=== PATIENT | female | born 1945 | race Caucasian/White ===

== ENCOUNTER → 2016-12-20 | Outpatient (CLI) | payer MEDICARE ==
--- NOTE | 2016-12-24 08:15 | MM ---
Reason for exam: screening (asymptomatic). Last mammogram was performed 1 year and 5 months ago. History: Patient is postmenopausal. Family history of breast cancer in maternal cousin. Benign right breast aspiration of the right breast, March 27, 2012. Benign right breast aspiration additional of the right breast, March 27, 2012. Took estrogen for 1 year beginning at age 54. Took progesterone for 1 year. Physical Findings: A clinical breast exam by your physician is recommended on an annual basis and results should be correlated with mammographic findings. MG 3D Screening Mammo W/Cad Bilateral CC and MLO view(s) were taken. Prior study comparison: July 20, 2015, right breast MG work up mamm w CAD RT. July 18, 2015, bilateral MG screening mammo w CAD. The breast tissue is heterogeneously dense. This may lower the sensitivity of mammography. Finding: There are coarse heterogeneous, grouped/clustered calcifications in the upper outer quadrant of the left breast, 6 cm from the nipple. There is a chronic nodularity bilaterally. New finding since July 20, 2015 and July 18, 2015. ASSESSMENT: Incomplete: need additional imaging evaluation, BI-RAD 0 RECOMMENDATION: Special view mammogram of the left breast. [facility] will attempt to contact patient to return for supplemental views.
== END | disposition home or self-care (01) ==
LOC: RADMAMWWP 11:11
PROVIDERS: ATTEND Internal Medicine
DX: Z12.31 Encounter for screening mammogram for malignant neoplasm of breast (principal)
CPT/HCPCS: 77063; G0202

== ENCOUNTER → 2016-12-27 | Outpatient (CLI) | payer MEDICARE ==
--- NOTE | 2016-12-27 11:34 | MM ---
Reason for exam: additional evaluation requested from abnormal screening. Last mammogram was performed less than 1 month ago. History: Patient is postmenopausal. Family history of breast cancer in maternal cousin at age 65. Benign right breast aspiration of the right breast, March 27, 2012. Benign right breast aspiration additional of the right breast, March 27, 2012. Took estrogen for 1 year beginning at age 54. Took progesterone for 1 year. Physical Findings: Nurse did not find any significant physical abnormalities on exam. MG 3D Work Up W/Cad LT LM, CC with magnification, and ML with magnification view(s) were taken of the left breast. Prior study comparison: December 20, 2016, bilateral MG 3d screening mammo w/cad. July 20, 2015, right breast MG work up mamm w CAD RT. The breast tissue is heterogeneously dense. This may lower the sensitivity of mammography. Group of micro calcifications with nodular density upper outer left breast. Biopsy is recommended. These results were verbally communicated with the patient and result sheet given to the patient on 12/27/16. ASSESSMENT: Suspicious, BI-RAD 4 RECOMMENDATION: Stereotactic core biopsy of the left breast. Called Dr. Nichols with mammographic findings and has scheduled an appointment for the patient for 01/07/17 at 1:[address] Guillen. Biopsy scheduled for 12/31/16 at 2:20. PRELIMINARY REPORT CALLED AND FAXED TO DR. GUILLEN ON 12/27/16 AT 300/TP.
== END | disposition home or self-care (01) ==
LOC: RADMAMWWP 08:47
PROVIDERS: ATTEND Internal Medicine
DX: R92.8 Other abnormal and inconclusive findings on diagnostic imaging of breast (principal)
CPT/HCPCS: G0206; G0279

== ENCOUNTER → 2016-12-31 | Day surgery (SDC) | payer MEDICARE ==
[~2016-12-31] MED LIST: ALPRAZolam 0.25 MG TAB ONE; BACITRACIN OINT 1 EACH PACKET TOPICAL ONE; LIDOCAINE 1% INJ 10MG/ML (20 ML MDV) ONE; SODIUM BICARB 4% 5 ML VIAL (0.48 MEQ/ML) ONE
--- NOTE | 2016-12-31 15:53 | MM ---
EXAMINATION TYPE: MG stereo VAD BX LT DATE OF EXAM: 12/31/2016 3:22 PM COMPARISON: Prior left breast mammogram December 27, 2016 and older studies CLINICAL HISTORY: Suspicious abnormal mammogram TECHNIQUE: Stereotactic guided core biopsy of left breast with clip placement and follow-up two-view mammogram. FINDINGS: The procedure of stereotactic guided core biopsy was explained to the patient. Benefits, alternatives, and risks were discussed. An informed consent was then obtained. Pathway chosen was cranial approach as lesion was best seen on CC view. I performed the localization then performed the remainder of the procedure. Lidocaine with bicarbonate is used as anesthetic. A vacuum assisted biopsy gun was used to obtain multiple core samples. The patient tolerated the procedure well without any immediate complication. The patient was kept in the radiology department for short stay after the procedure and then discharged home in stable condition. Some calcifications are identified in specimen mammogram. Post biopsy mammogram shows the clip to appear in satisfactory position relative to the targeted area of concern on the preprocedure images. IMPRESSION: SUCCESSFUL, UNCOMPLICATED STEREOTACTIC GUIDED CORE BIOPSY OF AREA OF CONCERN IN THE LEFT BREAST, FULL PATHOLOGY RESULTS TO FOLLOW. Intermediate index of suspicion noted at time of procedure. Pathology Results: Benign BREAST, LEFT, STEREOTACTIC CORE BIOPSY: FIBROCYSTIC CHANGE (STROMAL FIBROSIS, CYST FORMATION, APOCRINE METAPLASIA, ADENOSIS AND DUCT HYPERPLASIA). 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 PENDING DEEPER SECTIONS AND X-RAY OF BLOCK. ADDENDUM REPORT BREAST, LEFT, STEREOTACTIC CORE BIOPSY: FIBROCYSTIC CHANGE (STROMAL FIBROSIS, CYST FORMATION, APOCRINE METAPLASIA, ADENOSIS AND DUCT HYPERPLASIA). 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 RARE MICROCALCIFICATIONS AND CALCIUM OXYLATE CRYSTALS. Recommendation Follow up mammogram of the left breast in 6 months. MARYD
== END ==
LOC: RADMAMWWP 13:06
PROVIDERS: ATTEND Surgery
DX: N60.12 Diffuse cystic mastopathy of left breast (principal); N60.82 Other benign mammary dysplasias of left breast; N60.22 Fibroadenosis of left breast; N60.92 Unspecified benign mammary dysplasia of left breast; R92.8 Other abnormal and inconclusive findings on diagnostic imaging of breast
CPT/HCPCS: 88305; 19081; A4648; J2001

== ENCOUNTER 2019-02-18 19:51 | Inpatient (IN) | payer MEDICARE ==
--- NOTE | 2019-02-18 20:59 | ED ---
Chest Pain HPI - General Chief Complaint: Chest Pain Stated Complaint: chest & abdominal pain Time Seen by Provider: 02/18/19 20:54 Source: patient, family Mode of arrival: ambulatory Limitations: no limitations - History of Present Illness Initial Comments: This patient is 73-year-old woman who presents to be evaluated for chest pain that develops a few hours ago. She does state however that it has been present intermittently over the past week or so. MD Complaint: chest pain -: hour(s) Onset: during rest Pain Location: substernal Pain Radiation: back Severity: moderate Quality: tightness Consistency: now resolved Improves With: nothing Worsens With: nothing Anginal Symptoms: dyspnea - Related Data On Oral Contraceptives: No Home Medications Medication Instructions Recorded Confirmed Levothyroxine Sodium [Synthroid] 75 mcg PO DAILY 02/18/19 02/18/19 Multivitamins, Thera [Multivitamin 1 tab PO DAILY 02/18/19 02/18/19 (formulary)] Omeprazole 20 mg PO DAILY 02/18/19 02/18/19 Allergies Allergy/AdvReac Type Severity Reaction Status Date / Time Sulfa (Sulfonamide Allergy Unknown Verified 02/18/19 20:07 Antibiotics) Review of Systems ROS Statement: Those systems with pertinent positive or pertinent negative responses have been documented in the HPI. ROS Other: All systems not noted in ROS Statement are negative. Constitutional: Denies: fever, chills Respiratory: Reports: dyspnea. Denies: cough Cardiovascular: Reports: chest pain. Denies: palpitations, orthopnea, edema, syncope Gastrointestinal: Denies: abdominal pain, nausea, vomiting Genitourinary: Denies: dysuria, hematuria Musculoskeletal: Denies: back pain Skin: Denies: rash Neurological: Denies: headache, weakness, numbness EKG Findings - EKG Results: EKG: interpreted by ERMD, sinus rhythm (Rate 70 bpm) - Blocks, [place], Hypertrophy, ST Abn: AV and intraventricular conduction: left bundle branch block (fixed/intermittent, complete/incomplete) Past Medical History Past Medical History: Thyroid Disorder History of Any Multi-Drug Resistant Organisms: None Reported Past Surgical History: Orthopedic Surgery Past Psychological History: No Psychological Hx Reported Smoking Status: Never smoker Past Alcohol Use History: None Reported Past Drug Use History: None Reported - Past Family History Mother Family Medical History: Cancer, CVA/TIA Additional Family Medical History / Comment(s): colon cancer, polio Father Additional Family Medical History / Comment(s): acid reflux, heart issues (not sure what) General Exam Limitations: no limitations General appearance: alert, in no apparent distress Head exam: Present: atraumatic, normocephalic Eye exam: Present: normal appearance. Absent: scleral icterus, conjunctival injection ENT exam: Present: normal oropharynx Respiratory exam: Present: normal lung sounds bilaterally. Absent: respiratory distress, wheezes, rales, rhonchi, stridor Cardiovascular Exam: Present: regular rate, normal rhythm, normal heart sounds. Absent: systolic murmur, diastolic murmur, rubs, gallop GI/Abdominal exam: Present: soft. Absent: distended, tenderness, guarding, rebound, rigid, mass Extremities exam: Present: normal inspection, normal capillary refill. Absent: pedal edema, calf tenderness Back exam: Present: normal inspection. Absent: CVA tenderness (R), CVA tenderness (L) Neurological exam: Present: alert Skin exam: Present: warm, dry, intact, normal color. Absent: rash Course Vital Signs 02/18/19 02/18/19 19:53 23:41 Temperature 98.3 F 98.4 F Pulse Rate 75 68 Respiratory 22 20 Rate Blood Pressure 167/72 166/77 O2 Sat by Pulse 95 96 Oximetry Disposition Clinical Impression: Chest pain, Cholecystitis Disposition: ADMITTED IP TO THIS HOSP Condition: Fair
[2019-02-18 21:07] LABS: Basophils % (A) 0 %; Eosinophils # (A) 0.3 k/uL (0-0.7); Eosinophils % (A) 3 %; HCT 38.6 % (34.0-46.0); HGB 12.9 gm/dL (11.4-16.0); Lymphocytes # (A) 1.8 k/uL (1.0-4.8); Lymphocytes % (A) 18 %; MCH 26.3 pg (25.0-35.0); MCHC 33.4 g/dL (31.0-37.0); MCV 78.7 fL (80.0-100.0); Mean Platelet Volume 7.7; Monocytes # (A) 0.5 k/uL (0-1.0); Monocytes % (A) 5 %; Neutrophils # (A) 7.2 k/uL (1.3-7.7); Neutrophils % (A) 72 %; Platelet Count 290 k/uL (150-450); WBC 9.9 k/uL (3.8-10.6)
[2019-02-18 21:19] LABS: Albumin 4.2 g/dL (3.5-5.0); Calcium 9.3 mg/dL (8.4-10.2); Magnesium 2.1 mg/dL (1.6-2.3); Potassium 4.4 mmol/L (3.5-5.1); Total Bilirubin 0.5 mg/dL (0.2-1.3)
[2019-02-18 21:24] LABS: INR 0.9 (<1.2); Partial Thromboplastin Time 22.7 sec (22.0-30.0); Prothrombin Time 9.6 sec (9.0-12.0)
--- NOTE | 2019-02-18 21:27 | XR ---
EXAMINATION TYPE: XR chest 1V portable DATE OF EXAM: 02/18/2019 COMPARISON: 01/01/2016 HISTORY: Chest pain TECHNIQUE: Single frontal view of the chest is obtained. FINDINGS: There is no heart failure nor confluent pneumonic infiltrate. Costophrenic angles are sonali r. There are chest leads. Bony thorax is intact. IMPRESSION: No active cardiopulmonary disease. No change.
[2019-02-18 21:46] LABS: D-Dimer 0.7 mg/L FEU (<0.60)
--- NOTE | 2019-02-18 23:09 | US ---
EXAM: US Abdomen Limited, Right Upper Quadrant CLINICAL HISTORY: Reason: Pain, attention RUQ TECHNIQUE: Real-time ultrasound of the right upper quadrant with image documentation. COMPARISON: None available FINDINGS: Liver: Hepatic increased echotexture and ultrasound attenuation most suggestive of hepatic fatty infiltration. Gallbladder: Gallbladder is distended and contains a large gallstone measuring 3.5 cm. Borderline gallbladder wall thickening measuring 3.1 mm. [place] [employer] reports positive sonographic Gonsalves sign. Common bile duct: Common bile duct is mildly dilated measuring 8.6 mm. Pancreas: Pancreas not well visualized. Right kidney: Right kidney is of normal size and echotexture. No hydronephrosis. IMPRESSION: Evidence of hepatic fatty infiltration. Distended gallbladder with cholelithiasis containing large 3.5 cm gallstone. Borderline Gallbladder wall thickening and positive sonographic Gonsalves sign raising possibility of cholecystitis. Clinical correlation is recommended. Mild biliary dilatation with common bile duct measuring 8.6 mm. <MYCVCSECTION> [employer] 02/18/19 23:20 Verify Receipt Verified receipt with Dr. Mann on 02/18 23: 19 (-04:00)
[2019-02-18] MEDS ORDERED: HYDROmorphone 1 MG/ML 1 ML SYRINGE IVP PRN (23:21)
[2019-02-18] MEDS ORDERED: ONDANSETRON 4 MG/2 ML VIAL IVP PRN (23:21)
[2019-02-18] MEDS ORDERED: NALOXONE 0.4 MG/ML 1 ML VIAL IV PRN (23:21)
[2019-02-18] MEDS: SODIUM CHLORIDE 0.9% 1,000 ML IV SCH (23:41)
[2019-02-19] MEDS: SODIUM CHLORIDE 0.9% 1,000 ML IV SCH ×2 (07:51→15:07)
--- NOTE | 2019-02-19 08:01 | P.HPIM ---
History of Present Illness Chief complaint Epigastric pain History of present illness The patient is a 73-year-old female presented to the emergency room last night with epigastric discomfort and some radiation up into the chest and right upper quadrant. This was associated with some nausea. No unusual shortness of breath. No cough fever or chills. Past medical history Patient does have history of hypothyroidism Gastroesophageal reflux disease. No history of myocardial infarction, diabetes or stroke. Home medications Levothyroxine 75 g daily Omeprazole 20 mg daily Multiple vitamins daily ALLERGIES: Sulfa Review of systems No unusual headache. No shortness of breath. No cough or phlegm production. Positive nausea. No unusual urinary or bowel symptomatology no blood per rectum. No unusual edema. Family history noncontributory Social history Lives locally with her . No history of smoking or any excessive alcohol intake. Physical examination The patient in bed alert and oriented in no acute distress. Vital signs show temperature 98.4 with a pulse of 79 respirations 18. Blood pressure is 166/78 and she is 97% saturated. Head and neck exam unremarkable except for some right eye strabismus. Neck is not stiff. No carotid bruits. No thyromegaly detected. Breast and pelvic exam deferred. Lungs are clear to auscultation. Heart tones are regular without murmurs. Abdomen reveals tenderness in the epigastrium and right upper quadrant. No masses. Bowel sounds diminished. Images reveal no edema. Neurologically she is alert and oriented. Cranial nerves intact without focal peripheral weakness noted. Laboratory White count is 9.9 with a hemoglobin 12.9 and a platelet count of 290 INR was 0.9 with a PTT of 22.7. D-dimer was 0.7. Electrolytes normal. BUN 21 with creatinine 0.89 given her GFR of 65. Random glucose 172. Troponin less than 0.012. Liver enzymes normal. Albumin 4.2. Chest x-ray No active disease. No changes from previous back in 2016 EKG shows a normal sinus rhythm with a left bundle branch block but no evidence of acute ischemic changes noted. Abdominal ultrasound Showed gallbladder distended containing a large gallstone of 3.5 cm. Thickening noted. Fatty infiltration of the liver noted. Impressions Acute cholecystitis with gallstones. Patient been treated for hypothyroidism. Gastroesophageal reflux. Patient does have some mildly elevated blood pressures and this will be monitored. At this time I do not see any definite contraindication to cholecystectomy. This was discussed with the patient and nursing staff this morning. Plans A surgical consultation. Patient apparently is scheduled for surgery later today. Patient appears to understand testing results and reasons for surgery. Past Medical History Past Medical History: Thyroid Disorder History of Any Multi-Drug Resistant Organisms: None Reported Past Surgical History: Orthopedic Surgery Additional Past Surgical History / Comment(s): right hip replacement 2011 Past Anesthesia/Blood Transfusion Reactions: Previous Problems w/ Anesthesia Additional Past Anesthesia/Blood Transfusion Reaction / Comment(s): vertigo after anesthesia Past Psychological History: No Psychological Hx Reported Smoking Status: Never smoker Past Alcohol Use History: None Reported Past Drug Use History: None Reported - Past Family History Mother Family Medical History: Cancer, CVA/TIA Additional Family Medical History / Comment(s): colon cancer, polio Father Additional Family Medical History / Comment(s): acid reflux, heart issues (not sure what) Medications and Allergies Home Medications Medication Instructions Recorded Confirmed Type Levothyroxine Sodium [Synthroid] 75 mcg PO DAILY 02/18/19 02/18/19 History Multivitamins, Thera [Multivitamin 1 tab PO DAILY 02/18/19 02/18/19 History (formulary)] Omeprazole 20 mg PO DAILY 02/18/19 02/18/19 History Allergies Allergy/AdvReac Type Severity Reaction Status Date / Time Sulfa (Sulfonamide Allergy Unknown Verified 02/18/19 20:07 Antibiotics) Physical Exam Vitals: Vital Signs Temp Pulse Pulse Resp BP BP Pulse Ox 02/19/19 00:05 98.4 F 79 18 166/78 97 02/18/19 23:41 98.4 F 68 20 166/77 96 02/18/19 19:53 98.3 F 75 22 167/72 95 Intake and Output 02/18/19 02/19/19 02/19/19 22:59 06:59 14:59 Intake Total 750 Balance 750 Intake: Intake, IV Titration 750 Amount Sodium Chloride 0.9% 1, 750 000 ml @ 125 mls/hr IV . Q8H RACHAEL Rx#:[id number] Other: Voiding Method Toilet # Voids 2 Weight 97.522 kg Results CBC & Chem 7: 02/18/19 20:20 02/18/19 20:20 Labs: Abnormal Lab Results - Last 24 Hours (Table) 02/18/19 02/18/19 02/18/19 Range/Units 20:20 20:20 20:20 MCV 78.7 L (80.0-100.0) fL D-Dimer 0.70 H (<0.60) mg/L FEU BUN 21 H (7-17) mg/dL Glucose 172 H (74-99) mg/dL Thrombosis Risk Factor Assmnt - Choose All That Apply Any of the Below Risk Factors Present?: Yes Each Factor Represents 1 point: Obesity (BMI >25) Other Risk Factors: Yes Each Risk Factor Represents 2 Points: Age 61-74 years Other congenital or acquired thrombophilia - If yes, enter type in comment: No Thrombosis Risk Factor Assessment Total Risk Factor Score: 3 Thrombosis Risk Factor Assessment Level: Moderate Risk
--- NOTE | 2019-02-19 09:30 | P.GSCN ---
<Kimi Ruiz - Last Filed: 02/19/19 09:23> History of Present Illness Consult date: 02/19/19 Reason for Consult: Cholecystitis Requesting physician: Ziggy Vickers History of present illness: CHIEF COMPLAINT: Abdominal pain HISTORY OF PRESENT ILLNESS: 73-year-old female who presented to the emergency room with a chief complaint of epigastric pain. Patient states her pain initially started yesterday morning and then subsided. She went to lunch and reports having turkey, mashed potatoes, and vegetables and afterwards her pain became severe. Her pain radiated into her right shoulder and back. Reports some mild nausea. Denies emesis. Denies fever. PAST MEDICAL HISTORY: See list. PAST SURGICAL HISTORY: See list. SOCIAL HISTORY: No illicit drug use. REVIEW OF SYSTEMS: CONSTITUTIONAL: Denies fever or chills. HEENT: Denies blurred vision, vision changes, or eye pain. Denies hemoptysis CARDIOVASCULAR: Denies chest pain or pressure. RESPIRATORY: No shortness of breath. GASTROINTESTINAL: Refer to HPI for pertinent findings HEMATOLOGIC: Denies bleeding disorders. GENITOURINARY: Denies any blood in urine. SKIN: Denies pruitis. Denies rash. PHYSICAL EXAM: VITAL SIGNS: Reviewed. GENERAL: Well-developed in no acute distress. HEENT: No sclera icterus. Extraocular movements grossly intact. Moist buccal mucosa. Head is atraumatic, normocephalic. ABDOMEN: Soft. Nondistended. Tenderness upon epigastric region and right upper quadrant. NEUROLOGIC: Alert and oriented. Cranial nerves II through XII grossly intact. LABORATORY DATA: WBC 9.9. Hemoglobin 12.9. Total bilirubin 0.5. AST 26. ALT 42. IMAGING: Abdominal ultrasound: Distended gallbladder, cholelithiasis with large stone measuring 3.5 cm, gallbladder wall thickening, positive sonographic Gonsalves sign, mild biliary duct dilation measuring 8.6 mm. ASSESSMENT: 1. Epigastric/right upper quadrant pain with radiation to shoulder and back 1 day 2. Acute cholecystitis PLAN: 1. Nothing by mouth. Continue IV fluids. 2. Patient to undergo laparoscopic cholecystectomy today by Dr. Moss. 3. DVT prophylaxis with SCDs. Begin heparin subcu postoperatively 4. Protonix 40 mg IV daily 5. Medicine has evaluated the patient this morning and cleared for surgery. Nurse practitioner note has been reviewed by physician. Signing provider agrees with the documented findings, assessment, and plan of care. Past Medical History Past Medical History: Thyroid Disorder History of Any Multi-Drug Resistant Organisms: None Reported Past Surgical History: Orthopedic Surgery Additional Past Surgical History / Comment(s): right hip replacement 2011 Past Anesthesia/Blood Transfusion Reactions: Previous Problems w/ Anesthesia Additional Past Anesthesia/Blood Transfusion Reaction / Comm: vertigo after anesthesia Past Psychological History: No Psychological Hx Reported Smoking Status: Never smoker Past Alcohol Use History: None Reported Past Drug Use History: None Reported - Past Family History Mother Family Medical History: Cancer, CVA/TIA Additional Family Medical History / Comment(s): colon cancer, polio Father Additional Family Medical History / Comment(s): acid reflux, heart issues (not sure what) Medications and Allergies Home Medications Medication Instructions Recorded Confirmed Type Levothyroxine Sodium [Synthroid] 75 mcg PO DAILY 02/18/19 02/18/19 History Multivitamins, Thera [Multivitamin 1 tab PO DAILY 02/18/19 02/18/19 History (formulary)] Omeprazole 20 mg PO DAILY 02/18/19 02/18/19 History Allergies Allergy/AdvReac Type Severity Reaction Status Date / Time Sulfa (Sulfonamide Allergy Unknown Verified 02/18/19 20:07 Antibiotics) Surgical - Exam Vital Signs Temp Pulse Resp BP Pulse Ox 98.3 F 75 22 167/72 95 02/18/19 19:53 02/18/19 19:53 02/18/19 19:53 02/18/19 19:53 02/18/19 19:53 Results - Labs 02/18/19 20:20 02/18/19 20:20 Abnormal Lab Results - Last 24 Hours (Table) 02/18/19 02/18/19 02/18/19 Range/Units 20:20 20:20 20:20 MCV 78.7 L (80.0-100.0) fL D-Dimer 0.70 H (<0.60) mg/L FEU BUN 21 H (7-17) mg/dL Glucose 172 H (74-99) mg/dL Diabetes panel 02/18/19 Range/Units 20:20 Sodium 139 (137-145) mmol/L Potassium 4.4 (3.5-5.1) mmol/L Chloride 105 (98-107) mmol/L Carbon Dioxide 24 (22-30) mmol/L BUN 21 H (7-17) mg/dL Creatinine 0.89 (0.52-1.04) mg/dL Glucose 172 H (74-99) mg/dL Calcium 9.3 (8.4-10.2) mg/dL AST 26 (14-36) U/L ALT 42 (9-52) U/L Alkaline Phosphatase 98 (38-126) U/L Total Protein 7.0 (6.3-8.2) g/dL Albumin 4.2 (3.5-5.0) g/dL Calcium panel 02/18/19 Range/Units 20:20 Calcium 9.3 (8.4-10.2) mg/dL Albumin 4.2 (3.5-5.0) g/dL Pituitary panel 02/18/19 Range/Units 20:20 Sodium 139 (137-145) mmol/L Potassium 4.4 (3.5-5.1) mmol/L Chloride 105 (98-107) mmol/L Carbon Dioxide 24 (22-30) mmol/L BUN 21 H (7-17) mg/dL Creatinine 0.89 (0.52-1.04) mg/dL Glucose 172 H (74-99) mg/dL Calcium 9.3 (8.4-10.2) mg/dL Adrenal panel 02/18/19 Range/Units 20:20 Sodium 139 (137-145) mmol/L Potassium 4.4 (3.5-5.1) mmol/L Chloride 105 (98-107) mmol/L Carbon Dioxide 24 (22-30) mmol/L BUN 21 H (7-17) mg/dL Creatinine 0.89 (0.52-1.04) mg/dL Glucose 172 H (74-99) mg/dL Calcium 9.3 (8.4-10.2) mg/dL Total Bilirubin 0.5 (0.2-1.3) mg/dL AST 26 (14-36) U/L ALT 42 (9-52) U/L Alkaline Phosphatase 98 (38-126) U/L Total Protein 7.0 (6.3-8.2) g/dL Albumin 4.2 (3.5-5.0) g/dL <Jarod Moss - Last Filed: 02/19/19 14:53> History of Present Illness History of present illness: As above. Patient has had 2 episodes of pain like this yesterday was the most s evere and lasted throughout the day. Pain is somewhat improved today. Ultrasound findings show large gallstone with gallbladder wall thickening and Gonsalves sign positive. Labs looked good. Was initially scheduled for cholecystectomy later today however the OR schedule is to full and this was move d distal tomorrow morning. Discussed options fully with the patient and her daughter. Risks of bleeding, infection, bile leak, bile duct injury, retained common bile duct stone, trocar injury, conversion to an open procedure, hernia, anesthesia related complications were reviewed. The patient understands and wishes to proceed. Surgical - Exam Vital Signs Temp Pulse Resp BP Pulse Ox 98.3 F 75 22 167/72 95 02/18/19 19:53 02/18/19 19:53 02/18/19 19:53 02/18/19 19:53 02/18/19 19:53 Results - Labs 02/18/19 20:20 02/18/19 20:20 Abnormal Lab Results - Last 24 Hours (Table) 02/18/19 02/18/19 02/18/19 Range/Units 20:20 20:20 20:20 MCV 78.7 L (80.0-100.0) fL D-Dimer 0.70 H (<0.60) mg/L FEU BUN 21 H (7-17) mg/dL Glucose 172 H (74-99) mg/dL Diabetes panel 02/18/19 Range/Units 20:20 Sodium 139 (137-145) mmol/L Potassium 4.4 (3.5-5.1) mmol/L Chloride 105 (98-107) mmol/L Carbon Dioxide 24 (22-30) mmol/L BUN 21 H (7-17) mg/dL Creatinine 0.89 (0.52-1.04) mg/dL Glucose 172 H (74-99) mg/dL Calcium 9.3 (8.4-10.2) mg/dL AST 26 (14-36) U/L ALT 42 (9-52) U/L Alkaline Phosphatase 98 (38-126) U/L Total Protein 7.0 (6.3-8.2) g/dL Albumin 4.2 (3.5-5.0) g/dL Calcium panel 02/18/19 Range/Units 20:20 Calcium 9.3 (8.4-10.2) mg/dL Albumin 4.2 (3.5-5.0) g/dL Pituitary panel 02/18/19 Range/Units 20:20 Sodium 139 (137-145) mmol/L Potassium 4.4 (3.5-5.1) mmol/L Chloride 105 (98-107) mmol/L Carbon Dioxide 24 (22-30) mmol/L BUN 21 H (7-17) mg/dL Creatinine 0.89 (0.52-1.04) mg/dL Glucose 172 H (74-99) mg/dL Calcium 9.3 (8.4-10.2) mg/dL Adrenal panel 02/18/19 Range/Units 20:20 Sodium 139 (137-145) mmol/L Potassium 4.4 (3.5-5.1) mmol/L Chloride 105 (98-107) mmol/L Carbon Dioxide 24 (22-30) mmol/L BUN 21 H (7-17) mg/dL Creatinine 0.89 (0.52-1.04) mg/dL Glucose 172 H (74-99) mg/dL Calcium 9.3 (8.4-10.2) mg/dL Total Bilirubin 0.5 (0.2-1.3) mg/dL AST 26 (14-36) U/L ALT 42 (9-52) U/L Alkaline Phosphatase 98 (38-126) U/L Total Protein 7.0 (6.3-8.2) g/dL Albumin 4.2 (3.5-5.0) g/dL
[2019-02-19] MEDS: PANTOPRAZOLE 40 MG/10 ML VIAL IVP SCH (11:00)
[2019-02-19] MEDS: LEVOTHYROXINE 75 MCG TAB PO SCH (15:04)
[2019-02-19] MEDS: HEPARIN SODIUM,PORCINE 5,000 UNIT/ML 1 ML VIAL SQ SCH (17:28)
[2019-02-20] MEDS: HEPARIN SODIUM,PORCINE 5,000 UNIT/ML 1 ML VIAL SQ SCH ×3 (00:07→17:12)
[2019-02-20] MEDS: SODIUM CHLORIDE 0.9% 1,000 ML IV SCH ×2 (00:07→16:44)
[2019-02-20] MEDS ORDERED: HEPARIN SODIUM,PORCINE 5,000 UNIT/ML 1 ML VIAL ONE (07:58)
[2019-02-20] MEDS ORDERED: LIDOCAINE 1% INJ 10MG/ML (20 ML MDV) ONE (07:58)
[2019-02-20] MEDS ORDERED: ROCURONIUM BROMIDE 10 MG/ML 10 ML VIAL IV ONE (07:58)
[2019-02-20] MEDS ORDERED: SUCCINYLCHOLINE CHLORIDE 100 MG/5 ML SYR IV ONE (07:58)
[2019-02-20] MEDS ORDERED: DEXAMETHASONE SOD PHOS (MDV) 100 MG/10 ML VIAL ONE (07:58)
[2019-02-20] MEDS ORDERED: HYDROmorphone (PF) 1 MG/ML ONE (07:58)
[2019-02-20] MEDS ORDERED: fentaNYL (PF) 50 MCG/ML 2 ML AMP ONE (07:58)
[2019-02-20] MEDS ORDERED: ONDANSETRON 4 MG/2 ML VIAL ONE (07:58)
[2019-02-20] MEDS ORDERED: GLYCOPYRROLATE 0.2 MG/ML 2 ML VIAL ONE (07:58)
[2019-02-20] MEDS ORDERED: NEOSTIGMINE 1 MG/ML 10 ML VIAL ONE (07:58)
[2019-02-20] MEDS ORDERED: PROPOFOL 10 MG/ML 20 ML VIAL IV ONE (07:58)
[2019-02-20] MEDS ORDERED: BUPIVACAIN-EPI 0.5%-1:200,000 30 ML VIAL SQ ONE (08:02)
[2019-02-20] MEDS ORDERED: LACTATED RINGERS 1,000 ML IV ONE (08:02)
[2019-02-20] MEDS ORDERED: ceFAZolin 1,000 MG VIAL IVPB ONE (08:13)
[2019-02-20] MEDS: LEVOTHYROXINE 75 MCG TAB PO SCH ×2 (08:20→17:12)
[2019-02-20] MEDS: PANTOPRAZOLE 40 MG/10 ML VIAL IVP SCH (08:20)
--- NOTE | 2019-02-20 09:18 | P.OP ---
Date of Procedure: 02/20/19 Procedure(s) Performed: PREOPERATIVE DIAGNOSIS: Acute cholecystitis POSTOPERATIVE DIAGNOSIS: Same PROCEDURE: Laparoscopic cholecystectomy SURGEON: Ajay EBL: Minimal see anesthesia record ANESTHESIA: Gen. COMPLICATIONS: None OPERATIVE PROCEDURE: The patient was brought and placed on the operating room table in the supine position. The patient was placed under general anesthesia at that time. The abdomen was prepped and draped in the usual sterile fashion. A small vertical supraumbilical incision was made. The fascia was grasped with the Leanna forceps. The fascia was retracted anteriorly. The Veress needle was advanced into the peritoneal cavity. The saline drop test was normal. Insufflation took place up to 15 mmHg. A 5 mm optical trocar was advanced and the peritoneal cavity. 2 additional 5 mm trochars were placed in the right upper quadrant under direct visualization. A 12 mm trocar was advanced into the epigastric incision site. The gallbladder was retracted superiorly and laterally. The patient's gallbladder was quite long. Mild inflammatory changes were identified. There was a large stone in the fundus. The peritoneum overlying the infundibulum was bluntly dissected. The patient's cystic duct was visualized. The junction between the cystic duct common and hepatic duct was identified. The cystic duct was then divided after placement of 3 12 mm clips on the patient's side and one on the specimen side. The cystic artery was identified and clipped as well. A small vessel was seen along the gallbladder fossa and clipped as well. The gallbladder was then removed from the liver bed using electrocautery. The gallbladder was then removed from the epigastric tr ocar site with an Endo Catch bag. This required significant lengthening of the skin incision and fascia given the size of this large stone. The gallbladder fossa was irrigated with saline. There was no evidence of any bleeding or biliary drainage seen. The fascia at the 12 millimeter site was closed using a running 0 Vicryl stitch. The trochars were then removed. The skin at all 4 sites was closed using a 4-0 Monocryl stitch. Skin glue was utilized on the incision sites. At the end of this procedure the sponge and needle counts were correct. DISPOSITION: Stable to the recovery room
[2019-02-20] MEDS ORDERED: KETOROLAC 30 MG/ML 1 ML VIAL IVP ONE (09:32)
--- NOTE | 2019-02-20 12:06 | P.PN ---
Progress Note - Text The patient is a 73-year-old female who presented to the emergency room with abdominal and epigastric discomfort with some radiation to the chest. The patient was found to have acute cholecystitis and underwent laparoscopic cholecystectomy earlier today. She does have previous history of hypothyroidism and gastroesophageal reflux. Presently she sitting up in bed. The daughter states she had some vertigo which she has had intermittently in the past. Apparently she was given some Zofran and she has not had any vomiting. She appears to be resting comfortably. Vital signs showed temperature 97.6 with a pulse of 58 and respirations 16. She is 96% saturated and her last blood pressure was 154/74. Respirations are normal. No focal neurological changes. No new labs. Impressions and plans Patient now status post laparoscopic cholecystectomy. She does have some postop of vertigo. In discussion with the daughter apparently she may have had some problems with Antivert in the past. Can continue with symptomatic treatment with Zofran. Expect gradual clearing of her symptomatology. Possible discharge when this clears and stable from surgical standpoint.
[2019-02-20] MEDS: ACETAMINOPHEN TAB 500 MG TAB PO PRN (18:40)
[2019-02-21] MEDS: HEPARIN SODIUM,PORCINE 5,000 UNIT/ML 1 ML VIAL SQ SCH ×2 (00:26→08:09)
[2019-02-21] MEDS: ACETAMINOPHEN TAB 500 MG TAB PO PRN (05:17)
[2019-02-21 07:28] VITALS: BP 152/77; PULSE 61; RESP 16; TEMP 98
[2019-02-21] MEDS: SODIUM CHLORIDE 0.9% 1,000 ML IV SCH ×2 (07:59→08:09)
[2019-02-21] MEDS: PANTOPRAZOLE 40 MG/10 ML VIAL IVP SCH (08:09)
[2019-02-21] MEDS: LEVOTHYROXINE 75 MCG TAB PO SCH (08:09)
--- NOTE | 2019-02-21 09:55 | P.PN ---
Subjective Progress Note Date: 02/21/19 Principal diagnosis: Acute cholecystitis Patient doing well today. Denies abdominal pain. Tolerating diet. Is hoping to go home today. Objective - Vital Signs Vital signs: Vital Signs Temp 98.0 F 02/21/19 07:00 Pulse 61 02/21/19 07:00 Resp 16 02/21/19 07:00 BP 152/77 02/21/19 07:00 Pulse Ox 94 L 02/21/19 07:00 Intake & Output 02/20/19 02/21/19 02/21/19 18:59 06:59 18:59 Intake Total 600 300 Output Total 10 Balance 590 300 Intake: IV 600 Oral 300 Output: Estimated Blood Loss 10 Other: Voiding Method Toilet # Voids 3 2 # Bowel Movements 0 - Exam Abdomen: Soft, nondistended, incisions clean and dry - Labs CBC & Chem 7: 02/18/19 20:20 02/18/19 20:20 Assessment and Plan (1) Cholecystitis Narrative/Plan: Patient doing well. Anticipate discharge today. Follow-up in the office 1 bryanna castano Tylenol and Motrin for pain. Current Visit: Yes Status: Acute Code(s): K81.9 - CHOLECYSTITIS, UNSPECIFIED SNOMED Code(s): 84485206
--- NOTE | 2019-02-21 10:29 | P.DS ---
Providers Date of admission: 02/18/19 23:25 Attending physician: Ronaldo Nichols Consults: 02/18/19 23:24 Consult Physician Urgent Consulting Provider: Bharati Madison Consult Reason/Comments: cholecystitis Do you want consulting provider notified?: Already Contacted Primary care physician: Ronaldo Nichols The patient is a 73-year-old female who presented initially to the emergency room with epigastric discomfort with some radiation up into the chest and she also had right upper quadrant pain and with subsequent ultrasound revealed acute cholecystitis. Labs revealed a white count of 9.9 with a hemoglobin 12.9. Electrolytes were unremarkable. BUN of 21 and creatinine 0.89 and a GFR 65. Liver enzymes were unremarkable. A was 172. Troponin less than 0.012 and albumin was 4.2. Chest x-ray did not reveal any acute changes and EKG revealed normal sinus rhythm although there was a left bundle branch block, there was no evidence of any acute ischemic changes noted. The patient was admitted and consultation obtained with surgery. Patient seen by Dr. Pisano and underwent laparoscopic cholecystectomy. Postop patient generally did well although she had some postop pain and nausea she did progress well and had no unusual changes in her vital signs. This morning she is sitting up in a chair in her room. Alert and oriented. No nausea or vomiting. Temperature is 90.8 with a pulse of 61 and respirations 16. Blood pressure 152/77 and she is 94% saturated on room air. Lung and heart exam was clear. Abdomen nontender. No unusual edema. No new focal neurological changes. At this time anticipating discharge today. Patient can resume her home medications levothyroxine 75 g daily Omeprazole 20 mg daily if needed for reflux. She will take Tylenol and Motrin for pain. Follow-up with Dr. Moss from surgery. I told patient and family that they can call the office tomorrow if any medical concerns should arise for follow-up in my office. Discharge diagnosis Acute cholecystitis and now status post laparoscopic cholecystectomy. Hypothyroidism on replacement therapy Gastroesophageal reflux Diet to be progressed as per surgery. Activities as per surgery and as tolerated. Plan - Discharge Summary Discharge Rx Participant: Yes New Discharge Prescriptions: No Action Omeprazole 20 mg PO DAILY Multivitamins, Thera [Multivitamin (formulary)] 1 tab PO DAILY Levothyroxine Sodium [Synthroid] 75 mcg PO DAILY Discharge Medication List Levothyroxine Sodium [Synthroid] 75 mcg PO DAILY 02/18/19 [History] Multivitamins, Thera [Multivitamin (formulary)] 1 tab PO DAILY 02/18/19 [History] Omeprazole 20 mg PO DAILY 02/18/19 [History] Follow up Appointment(s)/Referral(s): Jarod Moss MD [Medical Doctor] - 1 Week Ronaldo Nichols MD [Primary Care Provider] - 1-2 days Patient Instructions/Handouts: Laparoscopic Cholecystectomy (DC) Activity/Diet/Wound Care/Special Instructions: No lifting greater than 5 pounds until follow up with surgeon. May shower daily. Don't scrub incisions. Bruising is normal. Assess for drainage. Any signs/symptoms of infection (fever, drainage, redness) notify surgeon. Please make follow up appointment to see surgeon. Follow up with primary care as needed. OTC Tylenol/Acetaminophen for pain or Motrin/Ibuprofen
== END 2019-02-21 10:50 | disposition home or self-care (01) | DRG 419 ==
LOC: EC 19:51 → 4SSUR 23:25
PROVIDERS: ADMIT Internal Medicine; ATTEND Internal Medicine
PROC: 0FT44ZZ Resection of Gallbladder, Percutaneous Endoscopic Approach (ICD-10-PCS; principal; 2019-02-20 08:00)
DX: K80.00 Calculus of gallbladder with acute cholecystitis without obstruction (principal); E03.9 Hypothyroidism, unspecified; K21.9 Gastro-esophageal reflux disease without esophagitis; Z79.890 Hormone replacement therapy; I44.7 Left bundle-branch block, unspecified; Z88.2 Allergy status to sulfonamides; R11.0 Nausea; Z96.641 Presence of right artificial hip joint; Z82.3 Family history of stroke; Z80.9 Family history of malignant neoplasm, unspecified; Z83.79 Family history of other diseases of the digestive system; Z82.49 Family history of ischemic heart disease and other diseases of the circulatory system; Z84.89 Family history of other specified conditions
CPT/HCPCS: 36415; 71045; 76705; 80053; 83735; 84484; 85025; 85379; 85610; 85730; 93005

== ENCOUNTER → 2019-07-15 | Outpatient (CLI) | payer MEDICARE ==
[2019-07-15 07:04] LABS: Basophils # (A) 0.1 k/uL (0-0.2); Basophils % (A) 1 %; Eosinophils # (A) 0.3 k/uL (0-0.7); Eosinophils % (A) 4 %; HGB 13.7 gm/dL (11.4-16.0); Lymphocytes # (A) 1.9 k/uL (1.0-4.8); Lymphocytes % (A) 20 %; MCH 25.4 pg (25.0-35.0); MCHC 32.6 g/dL (31.0-37.0); Mean Platelet Volume 7.4; Monocytes # (A) 0.5 k/uL (0-1.0); Monocytes % (A) 6 %; Neutrophils # (A) 6.4 k/uL (1.3-7.7); Neutrophils % (A) 69 %; Platelet Count 279 k/uL (150-450); RBC 5.39 m/uL (3.80-5.40); RDW 14.9 % (11.5-15.5); WBC 9.3 k/uL (3.8-10.6)
[2019-07-15 11:30] LABS: African American GFR (CKD) 57.3 (60.0-200.0); Albumin 4.6 g/dL (3.80-4.90); Anion Gap 9.2 mmol/L (4.00-12.00); BUN/Creat Ratio 24.55 Ratio (12.00-20.00); Calcium 9.6 mg/dL (8.7-10.3); Carbon Dioxide 24.8 mmol/L (21.6-31.8); Chol/HDL Ratio 3.61; Globulin 2.3 g/dL (1.6-3.3); LDL Cholesterol,Calculated 106.8 mg/dL (0.0-131.0); Potassium 4.6 mmol/L (3.5-5.5); Total Bilirubin 0.4 mg/dL (0.3-1.2); Total Protein 6.9 g/dL (6.2-8.2); VLDL Calculation 26.2 mg/dL (5.00-40.00)
== END | disposition home or self-care (01) ==
LOC: LABWHC1 06:34
PROVIDERS: ATTEND Nurse Practitioner Family
DX: E78.5 Hyperlipidemia, unspecified (principal); E87.8 Other disorders of electrolyte and fluid balance, not elsewhere classified; D64.9 Anemia, unspecified; E03.9 Hypothyroidism, unspecified; R79.9 Abnormal finding of blood chemistry, unspecified
CPT/HCPCS: 36415; 80053; 80061; 84443; 85025

== ENCOUNTER → 2019-07-30 | Outpatient (CLI) | payer MEDICARE ==
--- NOTE | 2019-07-30 14:35 | US ---
EXAMINATION TYPE: US pelvis complete transvag DATE OF EXAM: 07/30/2019 COMPARISON: NONE CLINICAL HISTORY: N95.0 post menopausal bleeding. patient states she has had bleeding ever since her cycle ended, heavy yesterday, patient thinks she was told she had fibroids, TECHNIQUE: TA/TV. Transabdominal sonographic images of the pelvis were acquired. Transvaginal sono graphic images Date of LMP: 22yrs ago EXAM MEASUREMENTS: Uterus: 6.3 x 3.6 x 3.5 cm Endometrial Stripe: 0.5 cm Right Ovary: N/A Left Ovary: N/A patient was unable to hold bladder and voided a little prior to imaging, patient was very tender du ring TV approach which limited exam. 1. Uterus: Anteverted wnl 2. Endometrium: upper limits of normal for age 3. Right Ovary: not seen due to bowel gas and atrophy 4. Left Ovary: not seen due to bowel gas and atrophy 5. Bilateral Adnexa: wnl 6. Posterior cul-de-sac: wnl IMPRESSION: 1. Endometrial thickness is upper limits of normal for the patient's age. Considering the history of postmenopausal bleeding direct visualization with sampling is recommended. 2. Ovaries are not seen due to overlying bowel gas and probable atrophy.
== END ==
LOC: RADUSWWP 13:21
PROVIDERS: ATTEND Internal Medicine
DX: N95.0 Postmenopausal bleeding (principal); R93.89 Abnormal findings on diagnostic imaging of other specified body structures
CPT/HCPCS: 76830; 76856

== ENCOUNTER → 2020-01-05 | Outpatient (CLI) | payer MEDICARE ==
[2020-01-05 07:38] LABS: HCT 41.3 % (34.0-46.0); HGB 13.1 gm/dL (11.4-16.0); MCH 24.9 pg (25.0-35.0); MCHC 31.8 g/dL (31.0-37.0); MCV 78.5 fL (80.0-100.0); Mean Platelet Volume 7.7; Platelet Count 276 k/uL (150-450); RBC 5.26 m/uL (3.80-5.40); RDW 14.6 % (11.5-15.5); WBC 8.4 k/uL (3.8-10.6)
[2020-01-05 11:57] LABS: African American GFR (CKD) 64.3 (60.0-200.0); Anion Gap 9.5 mmol/L (4.00-12.00); Calcium 9.3 mg/dL (8.7-10.3); Carbon Dioxide 26.5 mmol/L (21.6-31.8); Non-African American GFR(CKD) 55.5 (60.0-200.0); Potassium 4.6 mmol/L (3.5-5.5)
[2020-01-05 12:09] LABS: T4, Free (Free Thyroxine) 1.3 ng/dL (0.80-1.80)
== END | disposition home or self-care (01) ==
LOC: LABWHC1 06:46
PROVIDERS: ATTEND Nurse Practitioner Family
DX: I10 Essential (primary) hypertension (principal); E03.9 Hypothyroidism, unspecified
CPT/HCPCS: 36415; 80048; 84439; 84443; 85027

== ENCOUNTER → 2020-07-17 | Outpatient (CLI) | payer MEDICARE ==
[2020-07-17 08:12] LABS: Basophils # (A) 0.1 k/uL (0-0.2); Basophils % (A) 1 %; Eosinophils # (A) 0.2 k/uL (0-0.7); Eosinophils % (A) 3 %; HCT 41.1 % (34.0-46.0); HGB 13.2 gm/dL (11.4-16.0); Lymphocytes # (A) 2.1 k/uL (1.0-4.8); Lymphocytes % (A) 26 %; MCHC 32.2 g/dL (31.0-37.0); MCV 77.5 fL (80.0-100.0); Mean Platelet Volume 7.4; Monocytes # (A) 0.4 k/uL (0-1.0); Monocytes % (A) 5 %; Neutrophils # (A) 5.3 k/uL (1.3-7.7); Neutrophils % (A) 65 %; Platelet Count 256 k/uL (150-450); RDW 14.7 % (11.5-15.5); WBC 8.1 k/uL (3.8-10.6)
[2020-07-17 10:38] LABS: African American GFR (CKD) 72.5 (60.0-200.0); Albumin 4.5 g/dL (3.80-4.90); Albumin/Globulin Ratio 2.25 (1.60-3.17); Anion Gap 7.4 mmol/L (4.00-12.00); BUN/Creat Ratio 22.22 Ratio (12.00-20.00); Calcium 9.4 mg/dL (8.7-10.3); Carbon Dioxide 27.6 mmol/L (21.6-31.8); Chol/HDL Ratio 3.78; LDL Cholesterol,Calculated 110.6 mg/dL (0.0-131.0); Non-African American GFR(CKD) 62.5 (60.0-200.0); Potassium 4.8 mmol/L (3.5-5.5); Total Bilirubin 0.4 mg/dL (0.2-1.2); Total Protein 6.5 g/dL (6.2-8.2); VLDL Calculation 28.4 mg/dL (5.00-40.00)
[2020-07-17 10:46] LABS: T4, Free (Free Thyroxine) 1.4 ng/dL (0.80-1.80)
== END | disposition home or self-care (01) ==
LOC: LABWHC1 07:09
PROVIDERS: ATTEND Nurse Practitioner Family
DX: I10 Essential (primary) hypertension (principal); E03.9 Hypothyroidism, unspecified; R53.83 Other fatigue; E78.49 Other hyperlipidemia
CPT/HCPCS: 36415; 80053; 80061; 82306; 84439; 84443; 85025

== ENCOUNTER → 2021-01-15 | Outpatient (CLI) | payer MEDICARE ==
[2021-01-15 10:35] LABS: HCT 41.1 % (37.2-46.3); HGB 12.9 g/dL (12.0-15.0); MCH 25.4 pg (27.0-32.0); MCHC 31.4 g/dL (32.0-37.0); MCV 80.9 fL (80.0-97.0); Platelet Count 266 X 10*3/uL (140-440); RBC 5.08 X 10*6/uL (4.10-5.20); RDW 14.9 % (11.5-14.5); WBC 9.27 X 10*3/uL (4.50-10.00)
[2021-01-15 11:15] LABS: African American GFR (CKD) 72.5 (60.0-200.0); Anion Gap 10.1 mmol/L (4.00-12.00); BUN/Creat Ratio 21.11 Ratio (12.00-20.00); Calcium 9.6 mg/dL (8.7-10.3); Carbon Dioxide 27.9 mmol/L (21.6-31.8); Chol/HDL Ratio 3.37; LDL Cholesterol,Calculated 118.4 mg/dL (0.0-131.0); Non-African American GFR(CKD) 62.5 (60.0-200.0); Potassium 4.2 mmol/L (3.5-5.5); VLDL Calculation 21.6 mg/dL (5.00-40.00)
[2021-01-15 11:21] LABS: T4, Free (Free Thyroxine) 1.3 ng/dL (0.80-1.80)
== END | disposition home or self-care (01) ==
LOC: LABWHC1 07:09
PROVIDERS: ATTEND Nurse Practitioner Family
DX: E03.1 Congenital hypothyroidism without goiter (principal); E78.2 Mixed hyperlipidemia; E87.8 Other disorders of electrolyte and fluid balance, not elsewhere classified; I10 Essential (primary) hypertension
CPT/HCPCS: 36415; 80048; 80061; 84439; 84443; 85027

== ENCOUNTER 2021-06-25 06:25 | Emergency (ER) | payer MEDICARE ==
[2021-06-25 06:34] VITALS: TEMP 98.7
[2021-06-25] MEDS ORDERED: MORPHINE SULFATE 4 MG/ML SYRINGE IM STA (06:49)
--- NOTE | 2021-06-25 06:56 | ED ---
General Adult HPI - General Chief complaint: Back Pain/Injury Stated complaint: back pain Time Seen by Provider: 06/25/21 06:36 Source: patient, family Mode of arrival: ambulatory Limitations: no limitations - History of Present Illness Initial comments: 76-year-old female with a past medical history of thyroid disorder, cholecystectomy, hip replacement presents to the emergency room for a chief complaint of low back pain. Patient states for the past 3 or 4 weeks she has had pain in the low back. States it has been worsening. Patient thinks this started when she was on her porch it went to get out of the chair and felt a sudden pain in the right low back. Patient states she has been taking Tylenol but it has not been helping. She denies any bladder or bowel changes. She denies saddle anesthesia, weakness of the legs, or fevers. She denies dysuria or upper back pain.Patient has no other complaints at this time including shortness of breath, chest pain, abdominal pain, nausea or vomiting, headache, or visual changes. - Related Data Home Medications Medication Instructions Recorded Confirmed Levothyroxine Sodium [Synthroid] 75 mcg PO DAILY 02/18/19 06/25/21 Multivitamins, Thera [Multivitamin 1 tab PO DAILY 02/18/19 06/25/21 (formulary)] Acetaminophen Tab [Tylenol] 650 mg PO Q4H PRN 06/25/21 06/25/21 L.acidoph,Paracasei, B.lactis 1 cap PO DAILY 06/25/21 06/25/21 [Probiotic] Allergies Allergy/AdvReac Type Severity Reaction Status Date / Time Sulfa (Sulfonamide Allergy Unknown Verified 06/25/21 07:42 Antibiotics) Review of Systems ROS Statement: Those systems with pertinent positive or pertinent negative responses have been documented in the HPI. ROS Other: All systems not noted in ROS Statement are negative. Past Medical History Past Medical History: Thyroid Disorder History of Any Multi-Drug Resistant Organisms: None Reported Past Surgical History: Cholecystectomy, Orthopedic Surgery Additional Past Surgical History / Comment(s): right hip replacement 2011 Past Anesthesia/Blood Transfusion Reactions: Previous Problems w/ Anesthesia Additional Past Anesthesia/Blood Transfusion Reaction / Comment(s): vertigo after anesthesia Past Psychological History: No Psychological Hx Reported Smoking Status: Never smoker Past Alcohol Use History: None Reported Past Drug Use History: None Reported - Past Family History Mother Family Medical History: Cancer, CVA/TIA Additional Family Medical History / Comment(s): colon cancer, polio Father Additional Family Medical History / Comment(s): acid reflux, heart issues (not sure what) General Exam Limitations: no limitations General appearance: alert, in no apparent distress Head exam: Present: atraumatic Eye exam: Present: normal appearance, PERRL, EOMI. Absent: scleral icterus ENT exam: Present: normal exam, mucous membranes moist Neck exam: Present: normal inspection, full ROM. Absent: tenderness Respiratory exam: Present: normal lung sounds bilaterally. Absent: respiratory distress, wheezes Cardiovascular Exam: Present: regular rate, normal rhythm, normal heart sounds GI/Abdominal exam: Present: soft, normal bowel sounds. Absent: distended, tenderness Extremities exam: Present: normal capillary refill (Capillary refill less than 2 seconds, DP pulses 2+ bilaterally) Back exam: Present: vertebral tenderness (Lumbar tenderness. Right-sided paraspinal lumbar tenderness.). Absent: CVA tenderness (R), CVA tenderness (L) Neurological exam: Present: alert Course Vital Signs 06/25/21 06/25/21 06:29 08:16 Temperature 98.7 F Pulse Rate 74 64 Respiratory 22 18 Rate Blood Pressure 158/80 166/81 O2 Sat by Pulse 97 95 Oximetry Medical Decision Making - Medical Decision Making Those are stable. HPI and physical exam as documented. Urinalysis does not show any obvious evidence of infection but will be cultured. CT abdomen and pelvis shows multilevel degenerative disc disease greatest at L4-L5 where there is some borderline to mild central stenosis and bilateral foraminal encroach ment. Patient does not have any red flag symptoms. She'll be sent home with Tylenol 3 that she can alternate with Motrin. She did tolerate the morphine while here in the emergency room and it significantly helped with her pain. She will be referred to orthopedics as well as primary care. Patient and her are aware that if her symptoms are worsening significantly or she is having changes in her symptoms she should return to the emergency room. - Lab Data Lab Results 06/25/21 Range/Units 07:48 Urine Color Light Yellow Urine Appearance Cloudy H (Clear) Urine pH 5.0 (5.0-8.0) Ur Specific [place] 1.005 (1.001-1.035) Urine Protein Negative (Negative) Urine Glucose (UA) Negative (Negative) Urine Ketones Negative (Negative) Urine Blood Trace H (Negative) Urine Nitrite Negative (Negative) Urine Bilirubin Negative (Negative) Urine Urobilinogen <2.0 (<2.0) mg/dL Ur Leukocyte Esterase Large H (Negative) Urine RBC 4 (0-5) /hpf Urine WBC 7 H (0-5) /hpf Ur Squamous Epith Cells 3 (0-4) /hpf Urine Bacteria Rare H (None) /hpf Hyaline Casts 1 (0-2) /lpf Urine Mucus Rare H (None) /hpf Disposition Clinical Impression: Back pain, Degenerative disc disease Disposition: HOME SELF-CARE Condition: Good Instructions (If sedation given, give patient instructions): Acute Low Back Pain (ED) Additional Instructions: Please take Motrin and Tylenol for pain. if pain is severe take Tylenol 3. Follow up with Dr. Mccloud at orthopedics. Follow-up with primary care as well. If you have worsening symptoms return to the emergency room. Is patient prescribed a controlled substance at d/c from ED?: No Referrals: Sam Mccloud MD [Medical Doctor] - 1-2 days Myla Moya MD [STAFF PHYSICIAN] - 1-2 days Time of Disposition: 08:50
--- NOTE | 2021-06-25 07:33 | CT ---
EXAMINATION TYPE: CT lumbar spine wo con DATE OF EXAM: 06/25/2021 COMPARISON: None HISTORY: Low back pain x [address] DLP: 1302.[address] of the lumbar spine was performed. Bone and soft tissue window settings are submitted as well as coronal and sagittal reconstructions. L1-L2: Mild degenerative disc space narrowing with mild posterior disc bulge. No evidence of herniati on, protrusion or central stenosis. Foramina are patent. L2-L3: Mild degenerative disc space narrowing with mild posterior disc bulge. No evidence of herniati on, protrusion or central stenosis. Foramina are patent. L3-L4: Mild degenerative disc space narrowing with mild posterior disc bulge. No evidence of herniati on, protrusion or central stenosis. Foramina are patent. L4-L5: Moderate degenerative disc space narrowing. Posterior disc bulge with hypertrophy of the ligam entum flavum and facet joint arthropathy resulting in borderline mild central stenosis. Bilateral for aminal encroachment right greater than left. L5-S1: Mild degenerative disc space narrowing with mild posterior disc bulge. No evidence of herniati on, protrusion or central stenosis. Foramina are patent. No paraspinal masses are identified. Lumbar segments are free if fracture. IMPRESSION: 1. Multilevel degenerative disc disease greatest at L4-5 where there is some borderline to mild centr al stenosis and bilateral foraminal encroachment.
[2021-06-25 08:19] VITALS: BP 166/81; PULSE 64; RESP 18
[2021-06-25 08:36] LABS: Appearance,Urine Cloudy (Clear); Bacteria,Urine Rare /hpf; Bilirubin,Urine Negative (Negative); Blood,Urine Trace (Negative); Color,Urine Light Yellow; Glucose,Urine (UA) Negative (Negative); Hyaline Casts,Urine 1 /lpf (0-2); Ketones,Urine Negative (Negative); Leukocyte Esterase,Urine Large (Negative); Mucus,Urine Rare /hpf; Nitrite,Urine Negative (Negative); Protein,Urine Negative (Negative); RBC,Urine 4 /hpf (0-5); Specific Gravity,Urine 1.005 (1.001-1.035); Squamous Epithelial Cell,Urine 3 /hpf (0-4); Urobilinogen,Urine <2.0 mg/dL (<2.0); WBC,Urine 7 /hpf (0-5)
[2021-06-25] MEDS ORDERED: ACET/COD 300 MG/30 MG STARTER PACK 6 TAB BTL PO STA (09:12)
== END 2021-06-25 09:25 | disposition home or self-care (01) ==
LOC: EC 06:25
DX: M51.36 Other intervertebral disc degeneration, lumbar region (principal); Z79.890 Hormone replacement therapy; Z88.2 Allergy status to sulfonamides
CPT/HCPCS: 81001; 87086; 72131; 96372; 99284; J2270

== ENCOUNTER → 2021-07-31 | Outpatient (CLI) | payer MEDICARE ==
[2021-07-31 11:30] LABS: Basophils # (A) 0.05 X 10*3/uL (0.00-0.10); Basophils % (A) 0.5 %; Eosinophils # (A) 0.16 X 10*3/uL (0.04-0.35); Eosinophils % (A) 1.6 %; HCT 42.3 % (37.2-46.3); HGB 13.3 g/dL (12.0-15.0); Lymphocytes # (A) 2.05 X 10*3/uL (0.90-5.00); MCH 26.2 pg (27.0-32.0); MCHC 31.4 g/dL (32.0-37.0); MCV 83.4 fL (80.0-97.0); Mean Platelet Volume 10.8 fL (9.5-12.2); Monocytes # (A) 0.63 X 10*3/uL (0.20-1.00); Monocytes % (A) 6.4 %; Neutrophils # (A) 6.84 X 10*3/uL (1.80-7.70); Platelet Count 253 X 10*3/uL (140-440); RBC 5.07 X 10*6/uL (4.10-5.20); RDW 15.1 % (11.5-14.5); WBC 9.78 X 10*3/uL (4.50-10.00)
[2021-07-31 17:47] LABS: Chol/HDL Ratio 3.43 Ratio; HDL Cholesterol 61.8 mg/dL (40.00-60.00); LDL Cholesterol,Calculated 126.4 mg/dL (0.0-131.0); T4, Free (Free Thyroxine) 1.44 ng/dL (0.800-1.800); VLDL Calculation 23.8 mg/dL (5.00-40.00)
[2021-07-31 18:27] LABS: African American GFR (CKD) 100.9 (60.0-200.0); Albumin 4.4 g/dL (3.8-4.9); Albumin/Globulin Ratio 1.74 (1.60-3.17); Anion Gap 18.8 mmol/L (4.00-12.00); BUN/Creat Ratio 29.75 Ratio (12.00-20.00); Blood Urea Nitrogen 18.8 mg/dL (9.0-27.0); Calcium 9.5 mg/dL (8.7-10.3); Carbon Dioxide 19.1 mmol/L (21.6-31.8); Globulin 2.5 g/dL (1.6-3.3); Potassium 4.7 mmol/L (3.5-5.5); Total Bilirubin 0.4 mg/dL (0.30-1.20)
== END | disposition home or self-care (01) ==
LOC: LABWHC1 07:08
PROVIDERS: ATTEND Internal Medicine
DX: E03.9 Hypothyroidism, unspecified (principal)
CPT/HCPCS: 36415; 80053; 80061; 84439; 84443; 85025

== ENCOUNTER → 2021-09-07 | Outpatient (CLI) | payer MEDICARE ==
--- NOTE | 2021-09-07 15:40 | BD ---
EXAMINATION TYPE: Axial Bone Density DATE OF EXAM: 09/07/2021 COMPARISON: 04/19/2014 CLINICAL HISTORY: encounter for osteoporosis. Height: 61.5 IN Weight: 200 LBS RISK FACTORS HISTORY OF: Surgery to Hip(right): YES When: 2011 Active: LIMITED Diet low in dairy products/other sources of calcium: YES Postmenopausal woman: AGE 53 MEDICATIONS: Thyroid Medications: YES Which medication: Levothyroxine How Lon+ YEARS Additional Medications: LEVOTHYROXINE, PROBIOTIC, CALCIUM, EXAM MEASUREMENTS: Bone mineral densitometry was performed using the fitkit System. Bone mineral density as measured about the Lumbar spine is: ----- L1-L4(G/cm2): 1.141 T Score Values are as follows: ----- L2: -0.1 ----- L3: 0.3 ----- L4: -0.5 ----- L1-L4: -0.3 Bone mineral density has: Increased 4.9% since study of: 04/19/2014 Bone mineral density about the L hip (g/cm2): 0.841 T Score values are as follows: -----L Neck: -1.4 -----L Total: 0.3 Bone mineral density has: Decreased -4.6% since study of: 04/19/2014 IMPRESSION: osteopenia. NOTE: T-SCORE=SD OF THE YOUNG ADULT MEAN.
== END | disposition home or self-care (01) ==
LOC: RADBDWWP 14:39
PROVIDERS: ATTEND Internal Medicine
DX: M85.852 Other specified disorders of bone density and structure, left thigh (principal)
CPT/HCPCS: 77080

== ENCOUNTER → 2021-09-24 | Outpatient (CLI) | payer MEDICARE ==
--- NOTE | 2021-09-25 16:21 | US ---
EXAMINATION TYPE: US transvaginal DATE OF EXAM: 09/24/2021 COMPARISON: NONE CLINICAL HISTORY: N95.0 POST MENOPAUSAL BLEEDING. PMB. TECHNIQUE: Transvaginal (TV). Date of LMP: Unknown, EXAM MEASUREMENTS: Uterus: 6.8 x 3.0 x 3.5 cm Endometrial Stripe: 0.5 cm 1. Uterus: Anteverted Heterogenous in appearance. Mid posterior possible fibroid= 1.7 x 1.6 x 1.5 cm 2. Endometrium: limited visualization 3. Right Ovary: Obscured by overlying bowel gas 4. Left Ovary: Obscured by overlying bowel gas 5. Bilateral Adnexa: wnl 6. Posterior cul-de-sac: no free fluid IMPRESSION: 1. Posterior uterine fibroid. 2. Visualized pelvic ultrasound is unremarkable. There is limitation
== END | disposition home or self-care (01) ==
LOC: RADUSWWP 15:35
PROVIDERS: ATTEND Obstetrics & Gynecology
DX: D25.9 Leiomyoma of uterus, unspecified (principal)
CPT/HCPCS: 76830

== ENCOUNTER → 2021-10-25 | Outpatient (CLI) | payer MEDICARE ==
--- NOTE | 2021-10-29 12:14 | MM ---
Reason for exam: screening (asymptomatic). Last mammogram was performed 4 years and 10 months ago. History: Patient is postmenopausal. Family history of breast cancer in maternal cousin at age 65. Benign MG stereo VAD BX LT of the left breast, December 31, 2016. Benign right breast aspiration of the right breast, March 27, 2012. Benign right breast aspiration additional of the right breast, March 27, 2012. Took estrogen for 1 year beginning at age 54. Took progesterone for 1 year. Physical Findings: A clinical breast exam by your physician is recommended on an annual basis and results should be correlated with mammographic findings. MG 3D Screening Mammo W/Cad Bilateral CC and MLO view(s) were taken. Prior study comparison: December 27, 2016, left breast MG 3d work up w/cad LT. December 20, 2016, bilateral MG 3d screening mammo w/cad. The breast tissue is heterogeneously dense. This may lower the sensitivity of mammography. Previous mammotome biopsy in the left breast. There is chronic nodularity bilaterally. Enlarging low density circumscribed nodule central 12 o'clock left breast likely represents a cyst. 6 month follow up recommended. ASSESSMENT: Probably benign, BI-RAD 3 RECOMMENDATION: Follow-up diagnostic mammogram of the left breast in 6 months.
== END | disposition home or self-care (01) ==
LOC: RADMAMWWP 09:05
PROVIDERS: ATTEND Obstetrics & Gynecology
DX: Z12.31 Encounter for screening mammogram for malignant neoplasm of breast (principal); Z80.3 Family history of malignant neoplasm of breast; Z78.0 Asymptomatic menopausal state
CPT/HCPCS: 77063; 77067

== ENCOUNTER 2021-11-07 06:16 | Day surgery (SDC) | payer MEDICARE ==
[2021-10-31 12:23] VITALS: BMI 38.2
--- NOTE | 2021-11-06 16:30 | P.HPOB ---
History of Present Illness H&P Date: 11/06/21 Chief Complaint: Postmenopausal bleeding Tawanda is a 76-year-old female with postmenopausal bleeding. She is scheduled for a D&C with hysteroscopy and Pap smear for history of ASCUS. Risks/benefits/alternatives were reviewed with the patient in detail and all questions were answered for her prior to proceeding to the operative. A prior endometrial brought as he was attempted him of that no tissue was obtained. Past Medical History Past Medical History: Musculoskeletal Disorder, Osteoarthritis (OA), Thyroid Disorder Additional Past Medical History / Comment(s): post menopausal bleeding recently, chronic low back pain History of Any Multi-Drug Resistant Organisms: None Reported Past Surgical History: Appendectomy, Cholecystectomy, Joint Replacement Additional Past Surgical History / Comment(s): right hip replacement 2011 Past Anesthesia/Blood Transfusion Reactions: Previous Problems w/ Anesthesia, Motion Sickness Additional Past Anesthesia/Blood Transfusion Reaction / Comment(s): vertigo after anesthesia, trouble waking up after Smoking Status: Never smoker - Past Family History Mother Family Medical History: Cancer, CVA/TIA Additional Family Medical History / Comment(s): colon cancer, polio Father Additional Family Medical History / Comment(s): acid reflux, heart issues (not sure what) Medications and Allergies Home Medications Medication Instructions Recorded Confirmed Type Levothyroxine Sodium [Synthroid] 75 mcg PO DAILY 02/18/19 10/31/21 History Multivitamins, Thera [Multivitamin 1 tab PO DAILY 02/18/19 10/31/21 History (formulary)] L.acidoph,Paracasei, B.lactis 1 cap PO DAILY 06/25/21 10/31/21 History [Probiotic] Cannabidiol (Cbd) [Epidiolex] 0 mg PO DIRECTED PRN 10/31/21 10/31/21 History Cyanocobalamin (Vitamin B-12) 1,000 mcg PO DAILY 10/31/21 10/31/21 History [Vitamin B-12] Allergies Allergy/AdvReac Type Severity Reaction Status Date / Time Sulfa (Sulfonamide Allergy Unknown Verified 10/31/21 12:00 Antibiotics) sulfamethoxazole Allergy Unknown Verified 10/31/21 12:33 [From Bactrim] trimethoprim [From Bactrim] Allergy Unknown Verified 10/31/21 12:33 morphine AdvReac Nausea & Verified 10/31/21 12:19 Vomiting,vertigo Exam Osteopathic Statement: *. No significant issues noted on an osteopathic structural exam other than those noted in the History and Physical/Consult. - OBG Physical Exam Breast: both: normal (no masses) Abdomen: bowel sounds normal, no diffuse tenderness, no bruit present, no guarding noted, no hepatomegaly, no splenomegaly, no mass Vulva: both: normal Vagina: normal moisture, no discharge Cervix: no lesion, no discharge Uterus: normal size, normal contour Adnexa: both: normal Anus/Rectum: normal perianal skin, no rectal mass, no hemorrhoids, heme negative
[~2021-11-07 06:16] MED LIST changes: -ALPRAZolam 0.25 MG TAB ONE; -BACITRACIN OINT 1 EACH PACKET TOPICAL ONE; +DEXAMETHASONE SOD PHOSPHATE 4 MG/ML 1 ML VIAL IV ONE; +LIDOCAINE 1% (10MG/ML) FOR IV START INTRADERMA PRN; -LIDOCAINE 1% INJ 10MG/ML (20 ML MDV) ONE; +ONDANSETRON 4 MG/2 ML VIAL IVP ONE; +Pre Op ABX Message 1 EACH MISC MISCELLANE ONE; -SODIUM BICARB 4% 5 ML VIAL (0.48 MEQ/ML) ONE
[2021-11-07] MEDS ORDERED: LACTATED RINGERS 1,000 ML IV ONE (06:55)
[2021-11-07] MEDS ORDERED: hydrALAZINE HCL 20 MG/ML 1 ML VIAL IM STA (06:57)
[2021-11-07] MEDS: HYDROmorphone 0.5 MG/0.5 ML SYRINGE IVP PRN ×3 (07:00→08:27)
[2021-11-07] MEDS ORDERED: fentaNYL (PF) 50 MCG/ML 2 ML AMP ONE (07:29)
[2021-11-07] MEDS ORDERED: MIDAZOLAM 2 MG/2 ML VIAL ONE (07:29)
[2021-11-07] MEDS ORDERED: PROPOFOL 10 MG/ML 20 ML VIAL IV ONE (07:29)
[2021-11-07] MEDS ORDERED: SUCCINYLCHOLINE CHLORIDE 100 MG/5 ML SYR IV ONE (07:29)
[2021-11-07] MEDS ORDERED: LIDOCAINE 1% INJ 10MG/ML (20 ML MDV) ONE (07:29)
--- NOTE | 2021-11-07 08:04 | P.OP ---
Date of Procedure: 11/07/21 Preoperative Diagnosis: Postmenopausal bleeding Postoperative Diagnosis: Same Procedure(s) Performed: D&C with hysteroscopy and Pap smear. Also manual expressing of vulvar cyst Anesthesia: MELITON Surgeon: Vishal Shepard Estimated Blood Loss (ml): 3 Pathology: other (Uterine curettings and Pap smear) Condition: stable Disposition: same day Operative Findings: Pathology pending Description of Procedure: Lillian was taken to the operating suite where general anesthetic was found be adequate. She was prepped and draped in the normal sterile fashion and placed in the dorsal lithotomy position. Initially following prepping and draping a half centimeter sebaceous cyst was noted and manually expressed. Once this was completed weighted speculum was inserted in vagina and the cervix identified and Paps or was obtained. Once completed anterior lip of cervix was grasped with a now's clamp and cervix was sounded to 8 cm and dilated. Camera was inserted no pathologies noted visually therefore camera was removed and sharp curettings of the endometrium were obtained. All tissues collected, placed on Telfa and sent to pathology for evaluation. Once this completed patient was taken to the recovery room in stable and satisfactory condition. It is noted that she does have a uterine prolapse cervix does come just short of the vaginal introitus. Plan - Discharge Summary Discharge Rx Participant: No New Discharge Prescriptions: No Action Multivitamins, Thera [Multivitamin (formulary)] 1 tab PO DAILY Levothyroxine Sodium [Synthroid] 75 mcg PO DAILY Cannabidiol (Cbd) [Epidiolex] 0 mg PO DIRECTED PRN PRN Reason: back pain L.acidoph,Paracasei, B.lactis [Probiotic] 1 cap PO DAILY Cyanocobalamin (Vitamin B-12) [Vitamin B-12] 1,000 mcg PO DAILY Discharge Medication List Levothyroxine Sodium [Synthroid] 75 mcg PO DAILY 02/18/19 [History] Multivitamins, Thera [Multivitamin (formulary)] 1 tab PO DAILY 02/18/19 [History] L.acidoph,Paracasei, B.lactis [Probiotic] 1 cap PO DAILY 06/25/21 [History] Cannabidiol (Cbd) [Epidiolex] 0 mg PO DIRECTED PRN 10/31/21 [History] Cyanocobalamin (Vitamin B-12) [Vitamin B-12] 1,000 mcg PO DAILY 10/31/21 [History] Follow up Appointment(s)/Referral(s): Vishal Shepard DO [Doctor of Osteopathic Medicine] - 1 Week Activity/Diet/Wound Care/Special Instructions: No heavy lifting today, limit stairs and driving as well as pelvic rest. If any high temperatures, heavy bleeding, or severe pain call my office area Tylenol or Motrin are fine for mild cramping. Discharge Disposition: HOME SELF-CARE
[2021-11-07 08:07] VITALS: RESP 16; TEMP 97.4
[2021-11-07] MEDS: LACTATED RINGERS 1,000 ML IV SCH ×2 (09:29→11:04)
[2021-11-07 10:05] VITALS: BP 127/74; PULSE 74
[2021-11-07] MEDS ORDERED: ONDANSETRON 4 MG/2 ML VIAL ONE (10:32)
== END 2021-11-07 11:37 | disposition home or self-care (01) ==
LOC: OR 06:16
PROVIDERS: ATTEND Obstetrics & Gynecology
DX: N95.0 Postmenopausal bleeding (principal); R87.610 Atypical squamous cells of undetermined significance on cytologic smear of cervix (ASC-US); M19.90 Unspecified osteoarthritis, unspecified site; E07.9 Disorder of thyroid, unspecified; G89.29 Other chronic pain; M54.9 Dorsalgia, unspecified; R42 Dizziness and giddiness; Z90.49 Acquired absence of other specified parts of digestive tract; Z96.641 Presence of right artificial hip joint; Z83.1 Family history of other infectious and parasitic diseases; Z82.49 Family history of ischemic heart disease and other diseases of the circulatory system; Z80.0 Family history of malignant neoplasm of digestive organs; Z83.79 Family history of other diseases of the digestive system; Z79.890 Hormone replacement therapy; Z88.5 Allergy status to narcotic agent; Z88.7 Allergy status to serum and vaccine
CPT/HCPCS: 88305; 58558; J2250; J0360; J1100; J2405; J2001; J3010; J0330; J2704; J1170

== ENCOUNTER → 2022-06-27 | Outpatient (CLI) | payer MEDICARE ==
[2022-06-27 11:09] LABS: Basophils # (A) 0.06 X 10*3/uL (0.00-0.10); Basophils % (A) 0.6 %; Eosinophils # (A) 0.27 X 10*3/uL (0.04-0.35); Eosinophils % (A) 2.6 %; HCT 42.5 % (37.2-46.3); HGB 13.7 g/dL (12.0-15.0); Immature Grans, Automated 0.4 %; Lymphocytes # (A) 2.54 X 10*3/uL (0.90-5.00); Lymphocytes % (A) 24.9 %; MCH 26.5 pg (27.0-32.0); MCHC 32.2 g/dL (32.0-37.0); MCV 82.2 fL (80.0-97.0); Mean Platelet Volume 11.1 fL (9.5-12.2); Monocytes % (A) 5.9 %; NRBC Per 100 WBC 0 /100 WBCS (0.0-0.0); Neutrophils % (A) 65.6 %; Platelet Count 288 X 10*3/uL (140-440); RBC 5.17 X 10*6/uL (4.10-5.20); RDW 14.6 % (11.5-14.5); WBC 10.21 X 10*3/uL (4.50-10.00)
[2022-06-27 11:37] LABS: ALT 19 U/L (8-44); AST 29 U/L (13-35); African American GFR (CKD) 56.1 (60.0-200.0); Albumin 4.5 g/dL (3.8-4.9); Albumin/Globulin Ratio 1.32 (1.60-3.17); Alkaline Phosphatase 100 U/L (41-126); BUN/Creat Ratio 14.27 Ratio (12.00-20.00); Blood Urea Nitrogen 15.7 mg/dL (9.0-27.0); Calcium 9.8 mg/dL (8.7-10.3); Carbon Dioxide 26.3 mmol/L (20.0-27.5); Chloride 98 mmol/L (96-109); Chol/HDL Ratio 4.06 Ratio; Globulin 3.4 g/dL (1.6-3.3); Glucose 97 mg/dL (70-110); LDL Cholesterol,Calculated 130.5 mg/dL (0.0-131.0); Non-African American GFR(CKD) 48.4 (60.0-200.0); Potassium 4.3 mmol/L (3.5-5.5); Sodium 137 mmol/L (135-145); Total Protein 7.9 g/dL (6.2-8.2)
== END | disposition home or self-care (01) ==
LOC: LABWHC1 07:02
PROVIDERS: ATTEND Internal Medicine
DX: I10 Essential (primary) hypertension (principal); E03.9 Hypothyroidism, unspecified; M85.80 Other specified disorders of bone density and structure, unspecified site
CPT/HCPCS: 36415; 80053; 80061; 82306; 84439; 84443; 85025

== ENCOUNTER → 2022-07-24 | Outpatient (CLI) | payer MEDICARE ==
--- NOTE | 2022-07-24 14:05 | MM ---
Reason for Exam: Follow-up at short interval from prior study. Last screening mammogram was performed 9 month(s) ago. Patient History: Menarche at age 12. First Full-Term at age 25. Postmenopausal. Estrogen for 1 year from age 54 until age 55. Patient used Progesterone for 1 year. 12/31/2016, Benign Core Biopsy on the left side. 03/27/2012, Benign Cyst Aspiration on the right side. 03/27/2012, Benign Cyst Aspiration on the right side. Maternal cousin had breast cancer, age 65. Risk Values: Reva 5 year model risk: 2.3%. NCI Lifetime model risk: 4.4%. Prior Study Comparison: 12/20/2016 Bilateral Screening Mammogram, [facility]. 12/27/2016 Left Diagnostic Mammogram, [facility]. 10/25/2021 Bilateral Screening Mammogram, [facility]. Tissue Density: Left: The breast tissue is heterogeneously dense. This may lower the sensitivity of mammography. Findings: Analyzed By CAD. Mammotome biopsy clip right breast redemonstrated. There are multiple small round circumscribed masses including largest millimeter lesion centrally redemonstrated that is grossly stable. No new distortion or suspicious group of microcalcifications in the left breast. Overall Assessment: Benign, BI-RAD 2 Management: Return to routine follow-up (next follow-up: 10/25/2022 for Diagnostic Mammogram) Back on annual schedule. Results were given to the patient verbally at the time of exam. Electronically signed and approved by: Christiano Sherwood M.D.
== END | disposition home or self-care (01) ==
LOC: RADMAMWWP 09:24
PROVIDERS: ATTEND Internal Medicine
DX: R92.8 Other abnormal and inconclusive findings on diagnostic imaging of breast (principal)
CPT/HCPCS: 77065; G0279; 77061

== ENCOUNTER → 2023-01-13 | Outpatient (CLI) | payer MEDICARE ==
--- NOTE | 2023-01-14 08:37 | MM ---
Reason for Exam: Screening (asymptomatic). Last mammogram was performed 1 year(s) and 3 month(s) ago. Patient History: Menarche at age 12. First Full-Term at age 25. Postmenopausal. Estrogen for 1 year from age 54 until age 55. Patient used Progesterone for 1 year. 12/31/2016, Benign Core Biopsy on the left side. 03/27/2012, Benign Cyst Aspiration on the right side. 03/27/2012, Benign Cyst Aspiration on the right side. Maternal cousin had breast cancer, age 65. Risk Values: Reva 5 year model risk: 2.3%. NCI Lifetime model risk: 4.4%. Prior Study Comparison: 12/27/2016 Left Diagnostic Mammogram, [facility]. 10/25/2021 Bilateral Screening Mammogram, [facility]. 07/24/2022 Left MG 3D diag mammo w/cad LT, [facility]. Tissue Density: The breast tissue is heterogeneously dense. This may lower the sensitivity of mammography. Findings: Analyzed By CAD. There is no suspicious group of microcalcifications or new suspicious mass in either breast. Chronic nodularity within both breasts. Previous mammotome biopsy left breast. Overall Assessment: Benign, BI-RAD 2 Management: Screening Mammogram of both breasts in 1 year. A clinical breast exam by your physician is recommended on an annual basis and results should be correlated with mammographic findings. Electronically signed and approved by: Rikki Teran D.O.
== END | disposition home or self-care (01) ==
LOC: RADMAMWWP 07:07
PROVIDERS: ATTEND Internal Medicine
DX: Z12.31 Encounter for screening mammogram for malignant neoplasm of breast (principal); Z78.0 Asymptomatic menopausal state; Z80.3 Family history of malignant neoplasm of breast
CPT/HCPCS: 77063; 77067

== ENCOUNTER → 2023-07-02 | Outpatient (CLI) | payer MEDICARE ==
[2023-07-02 11:25] LABS: Basophils # (A) 0.05 X 10*3/uL (0.00-0.10); Basophils % (A) 0.6 %; Eosinophils % (A) 2.2 %; HCT 41.8 % (37.2-46.3); HGB 13.4 d/dL (12.0-15.0); Lymphocytes # (A) 2.21 X 10*3/uL (0.90-5.00); Lymphocytes % (A) 24.4 %; MCH 26.6 pg (27.0-32.0); MCHC 32.1 d/dL (32.0-37.0); MCV 82.9 FL (80.0-97.0); Mean Platelet Volume 11.3 FL (9.5-12.2); Monocytes # (A) 0.46 X 10*3/uL (0.20-1.00); Monocytes % (A) 5.1 %; NRBC Per 100 WBC 0 X 10*3/uL (0.00-0.01); Neutrophils # (A) 6.11 X 10*3/uL (1.80-7.70); Neutrophils % (A) 67.3 %; Platelet Count 256 X 10*3/uL (140-440); RBC 5.04 X 10*6/uL (4.10-5.20); RDW 14.3 % (11.5-14.5); WBC 9.07 X 10*3/uL (4.50-10.00)
[2023-07-02 11:51] LABS: ALT 16 U/L (8-44); AST 24 U/L (13-35); Albumin 4.6 d/dL (3.8-4.9); Albumin/Globulin Ratio 1.77 Ratio (1.60-3.17); Alkaline Phosphatase 107 U/L (41-126); Blood Urea Nitrogen 17.7 mg/dL (9.0-27.0); Calcium 9.7 mg/dL (8.7-10.3); Carbon Dioxide 26.2 mmol/L (21.6-31.8); Chloride 103 mmol/L (96-109); Globulin 2.6 d/dL (1.6-3.3); Glucose 96 mg/dL (70-110); LDL Cholesterol,Calculated 135.1 mg/dL (0.0-131.0); Potassium 3.7 mmol/L (3.5-5.5); Sodium 142 mmol/L (135-145); T4, Free (Free Thyroxine) 1.52 ng/dL (0.80-1.80); Total Bilirubin 0.4 mg/dL (0.3-1.2); Total Protein 7.2 d/dL (6.2-8.2)
== END | disposition home or self-care (01) ==
LOC: LABWHC1 07:16
PROVIDERS: ATTEND Internal Medicine
DX: Z11.59 Encounter for screening for other viral diseases (principal); I10 Essential (primary) hypertension; E03.9 Hypothyroidism, unspecified; M85.80 Other specified disorders of bone density and structure, unspecified site
CPT/HCPCS: 36415; 80053; 80061; 82306; 84439; 84443; 85025; 86803

== ENCOUNTER → 2024-05-03 | Outpatient (CLI) | payer MEDICARE ==
--- NOTE | 2024-05-10 07:51 | BD ---
EXAMINATION TYPE: Axial Bone Density DATE OF EXAM: 05/03/2024 CLINICAL HISTORY: 79 years old Female. ICD-10 CODE: M85.80 OT DISRD OF BONE DENSITY AND STRUCTURE, UN Height: 63 Weight: 180.3 FRAX RISK QUESTIONS: Alcohol (3 or more units per day): no Family History (Parent hip fracture): no Glucocorticoids (More than 3mos): no (Ex: prednisone, prednisolone, methylprednisolone, dexamethasone, and hydrocortisone). History of Fracture in Adulthood: no Secondary Osteoporosis: 1. Type 1 Diabetes: no 2. Hyperthyroidism: no 3. Menopause before 45: no 4. Malnutrition: no 5. Chronic liver disease: no Rheumatoid Arthritis: no Current Tobacco Use: no RISK FACTORS HISTORY OF: Hip Fracture (Right/Left): no Spine Fracture: no History of Wrist Fracture: no Surgery to Spine/Hip(right/left)/Wrist (right/left): RT hip replacement When: 2011 MEDICATIONS: Thyroid Medications: Levothyroxine How Long: past 15 years Osteoporosis Medications: no EXAM MEASUREMENTS: Bone mineral densitometry was performed using the [employer] System. Bone mineral density as measured about the Lumbar spine is: ----- L1-L4(G/cm2): 1.106 T Score Values are as follows: ----- L1: -1.7 ----- L2: -0.4 ----- L3: 0.3 ----- L4: -0.9 ----- L1-L4: -0.6 Z Score Values are as follows: ----- L1: -0.5 ----- L2: 0.8 ----- L3: 1.5 ----- L4: 0.4 ----- L1-L4: 0.6 Bone mineral density has: decreased -3.1 % since study of: 09/07/2021 Bone mineral density about the L hip (g/cm2): 1.029 T Score values are as follows: -----L Neck: -1.3 -----L Total: 0.2 Z Score values are as follows: -----L Neck: 0.4 -----L Total: 1.7 Bone mineral density has: decreased -2.0 % since study of: FRAX%s: The graph provided illustrates a 11.8% chance for a major osteoporotic fx and a 2.9% chance f or the hips probability for fx in 10 years time. IMPRESSION: Normal (Values between +1 and -1 indicate normal bone mass). Consider repeating this study in 5 year s or sooner if there is some new clinical indication. NOTE: T-SCORE=SD OF THE YOUNG ADULT MEAN.
== END | disposition home or self-care (01) ==
LOC: RADBDWWP 07:58
PROVIDERS: ATTEND Internal Medicine
DX: M85.89 Other specified disorders of bone density and structure, multiple sites (principal)
CPT/HCPCS: 77080

== ENCOUNTER → 2024-09-07 | Outpatient (CLI) | payer MEDICARE ==
[2024-09-07 11:29] LABS: Basophils # (A) 0.05 X 10*3/uL (0.00-0.10); Basophils % (A) 0.6 %; Eosinophils # (A) 0.16 X 10*3/uL (0.04-0.35); Eosinophils % (A) 1.9 %; HCT 40.6 % (37.2-46.3); HGB 13.2 g/dL (12.0-15.0); Lymphocytes # (A) 2.35 X 10*3/uL (0.90-5.00); Lymphocytes % (A) 28.6 %; MCH 26.8 pg (27.0-32.0); MCHC 32.5 g/dL (32.0-37.0); MCV 82.4 FL (80.0-97.0); Mean Platelet Volume 11.2 FL (9.5-12.2); Monocytes # (A) 0.44 X 10*3/uL (0.20-1.00); Monocytes % (A) 5.3 %; NRBC Per 100 WBC 0 X 10*3/uL (0.00-0.01); Neutrophils # (A) 5.21 X 10*3/uL (1.80-7.70); Neutrophils % (A) 63.4 %; Platelet Count 251 X 10*3/uL (140-440); RBC 4.93 X 10*6/uL (4.10-5.20); RDW 14.4 % (11.5-14.5); WBC 8.23 X 10*3/uL (4.50-10.00)
[2024-09-07 12:27] LABS: ALT 13 U/L (8-44); AST 21 U/L (13-35); Albumin 4.2 g/dL (3.8-4.9); Alkaline Phosphatase 102 U/L (41-126); Blood Urea Nitrogen 20.5 mg/dL (9.0-27.0); Calcium 9.5 mg/dL (8.7-10.3); Carbon Dioxide 25.1 mmol/L (21.6-31.8); Chloride 102 mmol/L (96-109); Chol/HDL Ratio 3.76 Ratio; Globulin 2.8 g/dL (1.6-3.3); Glucose 97 mg/dL (70-110); LDL Cholesterol,Calculated 126.8 mg/dL (0.0-131.0); Potassium 3.9 mmol/L (3.5-5.5); Sodium 141 mmol/L (135-145); T4, Free (Free Thyroxine) 1.41 ng/dL (0.80-1.80); Total Bilirubin 0.4 mg/dL (0.3-1.2)
== END | disposition home or self-care (01) ==
LOC: LABWHC1 06:45
PROVIDERS: ATTEND Internal Medicine
DX: I12.9 Hypertensive chronic kidney disease with stage 1 through stage 4 chronic kidney disease, or unspecified chronic kidney disease (principal); M85.80 Other specified disorders of bone density and structure, unspecified site; E03.9 Hypothyroidism, unspecified; N18.31 Chronic kidney disease, stage 3a
CPT/HCPCS: 36415; 80053; 80061; 82306; 83735; 83970; 84439; 84443; 85025